=== PATIENT | male | born 1985 | race Caucasian/White ===

== ENCOUNTER 2019-08-02 11:02 | Emergency (ER) | payer OTHER ==
[~2019-08-02] VITALS: Ht 188 cm; Wt 128.8 kg
[2019-08-02 11:03] VITALS: BP 125/81
--- NOTE | 2019-08-02 11:07 | NUR ---
AMBULATED TO BED 1
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
[2019-08-02] MEDS ORDERED: IBUPROFEN 600 MG TAB PO ONE (11:20)
--- NOTE | 2019-08-02 12:27 | NUR ---
PLACED ORTHO SHOE ON LEFT FOOT OF PT AND SIZED CRUTCHES TO PT
[2019-08-02 12:46] VITALS: BP 122/75
== END 2019-08-02 12:25 | disposition home or self-care (01) ==
LOC: MED 11:02
DX: S93.692A Other sprain of left foot, initial encounter (principal); X50.0XXA Overexertion from strenuous movement or load, initial encounter; Y93.89 Activity, other specified; Y92.89 Other specified places as the place of occurrence of the external cause; Y99.8 Other external cause status
CPT/HCPCS: 29515; 73630; 99283; Q0092